=== PATIENT | male | born 1950 | race Caucasian/White ===

== ENCOUNTER 2017-09-10 20:57 | Emergency (ER) | payer MEDICAID ==
[2017-09-10 21:05] VITALS: RESP 18; TEMP 98.6
[2017-09-10 22:03] LABS: Basophils % (A) 1 %; Eosinophils # (A) 0.2 k/uL (0-0.7); Eosinophils % (A) 4 %; HCT 43.2 % (39.0-53.0); HGB 14.2 gm/dL (13.0-17.5); Lymphocytes % (A) 30 %; MCH 30.4 pg (25.0-35.0); MCHC 32.8 g/dL (31.0-37.0); MCV 92.7 fL (80.0-100.0); Mean Platelet Volume 7.9; Monocytes # (A) 0.6 k/uL (0-1.0); Monocytes % (A) 9 %; Neutrophils # (A) 3.5 k/uL (1.3-7.7); Neutrophils % (A) 53 %; Platelet Count 268 k/uL (150-450); RBC 4.66 m/uL (4.30-5.90); RDW 12.1 % (11.5-15.5); WBC 6.6 k/uL (3.8-10.6)
[2017-09-10 22:17] LABS: ALT 26 U/L (21-72); AST 26 U/L (17-59); Alkaline Phosphatase 62 U/L (38-126); Anion Gap 12 mmol/L; Blood Urea Nitrogen 14 mg/dL (9-20); Calcium 9.3 mg/dL (8.4-10.2); Carbon Dioxide 29 mmol/L (22-30); Chloride 105 mmol/L (98-107); Glucose 101 mg/dL (74-99); Magnesium 2.1 mg/dL (1.6-2.3); Potassium 4.3 mmol/L (3.5-5.1); Sodium 146 mmol/L (137-145); Total Bilirubin 1.2 mg/dL (0.2-1.3); Total Protein 6.8 g/dL (6.3-8.2)
--- NOTE | 2017-09-10 22:18 | ED ---
Arrhythmia/Palpitations HPI - General Chief Complaint: Arrhythmia/Palpitations Stated Complaint: Irregular HB Time Seen by Provider: 09/10/17 21:49 Source: patient Mode of arrival: ambulatory Limitations: no limitations - History of Present Illness Initial Comments: 's patient is a 67-year-old man who presents to be evaluated for skipped beats. The patient states that going back about 3 weeks now he has noticed that sometimes when he works out, mainly using the treadmill, he has noticed that when he takes his pulse he will get a few dropped beats. He states that he is not otherwise having symptoms, but as this is continued he felt he should have it checked out. The patient has not been having chest pains, dyspnea, diaphoresis, nausea or vomiting. No exertional dyspnea. No orthopnea. Remainder of review of systems negative. MD Complaint: "skipped beats" Onset/Timin -: week(s) Context: occurred during exertion Associated Symptoms: denies other symptoms - Related Data Home Medications Medication Instructions Recorded Confirmed No Known Home Medications [No 09/10/17 09/10/17 Known Home Medications] Allergies Allergy/AdvReac Type Severity Reaction Status Date / Time erythromycin base AdvReac Rash/Hives Verified 09/10/17 21:59 Review of Systems ROS Statement: Those systems with pertinent positive or pertinent negative responses have been documented in the HPI. ROS Other: All systems not noted in ROS Statement are negative. Constitutional: Denies: fever, chills Respiratory: Denies: cough, dyspnea Cardiovascular: Reports: palpitations. Denies: chest pain, dyspnea on exertion , orthopnea, edema, syncope Gastrointestinal: Denies: abdominal pain, vomiting, diarrhea Genitourinary: Denies: dysuria, hematuria Musculoskeletal: Denies: back pain Skin: Denies: rash Neurological: Denies: headache, weakness, numbness Past Medical History Past Medical History: No Reported History History of Any Multi-Drug Resistant Organisms: None Reported Past Surgical History: Hernia Repair Additional Past Surgical History / Comment(s): back surgery. Past Psychological History: No Psychological Hx Reported Smoking Status: Never smoker Past Alcohol Use History: None Reported Past Drug Use History: None Reported General Exam Limitations: no limitations General appearance: alert, in no apparent distress Head exam: Present: atraumatic, normocephalic Eye exam: Present: normal appearance ENT exam: Present: normal oropharynx, mucous membranes moist Respiratory exam: Present: normal lung sounds bilaterally. Absent: respiratory distress, wheezes, rales, rhonchi, stridor Cardiovascular Exam: Present: regular rate, normal rhythm, normal heart sounds. Absent: systolic murmur, diastolic murmur, rubs, gallop GI/Abdominal exam: Present: soft. Absent: distended, tenderness, guarding Extremities exam: Present: normal inspection, normal capillary refill. Absent: pedal edema, calf tenderness Back exam: Present: normal inspection Neurological exam: Present: alert Skin exam: Present: warm, dry, intact, normal color. Absent: rash Course Vital Signs 09/10/17 09/10/17 21:00 22:38 Temperature 98.6 F Pulse Rate 81 66 Respiratory 18 18 Rate Blood Pressure 163/87 156/82 O2 Sat by Pulse 99 100 Oximetry Medical Decision Making - Lab Data Result diagrams: 09/10/17 21:50 09/10/17 21:50 Lab Results 09/10/17 09/10/17 09/10/17 Range/Units 21:50 21:50 21:50 WBC 6.6 (3.8-10.6) k/uL RBC 4.66 (4.30-5.90) m/uL Hgb 14.2 (13.0-17.5) gm/dL Hct 43.2 (39.0-53.0) % MCV 92.7 (80.0-100.0) fL MCH 30.4 (25.0-35.0) pg MCHC 32.8 (31.0-37.0) g/dL RDW 12.1 (11.5-15.5) % Plt Count 268 (150-450) k/uL Neutrophils % 53 % Lymphocytes % 30 % Monocytes % 9 % Eosinophils % 4 % Basophils % 1 % Neutrophils # 3.5 (1.3-7.7) k/uL Lymphocytes # 2.0 (1.0-4.8) k/uL Monocytes # 0.6 (0-1.0) k/uL Eosinophils # 0.2 (0-0.7) k/uL Basophils # 0.0 (0-0.2) k/uL Sodium 146 H (137-145) mmol/L Potassium 4.3 (3.5-5.1) mmol/L Chloride 105 (98-107) mmol/L Carbon Dioxide 29 (22-30) mmol/L Anion Gap 12 mmol/L BUN 14 (9-20) mg/dL Creatinine 0.90 (0.66-1.25) mg/dL Est GFR (CKD-EPI)AfAm >90 (>60 ml/min/1.73 sqM) Est GFR (CKD-EPI)NonAf 88 (>60 ml/min/1.73 sqM) Glucose 101 H (74-99) mg/dL Calcium 9.3 (8.4-10.2) mg/dL Magnesium 2.1 (1.6-2.3) mg/dL Total Bilirubin 1.2 (0.2-1.3) mg/dL AST 26 (17-59) U/L ALT 26 (21-72) U/L Alkaline Phosphatase 62 (38-126) U/L Troponin I <0.012 (0.000-0.034) ng/mL Total Protein 6.8 (6.3-8.2) g/dL Albumin 4.0 (3.5-5.0) g/dL TSH 2.650 (0.465-4.680) mIU/L Disposition Clinical Impression: Palpitations Disposition: HOME SELF-CARE Condition: Good Instructions: Palpitations (ED) Referrals: None,Stated [Primary Care Provider] - 1-2 days Cruz Thapa MD [STAFF PHYSICIAN] - 1-2 days
--- NOTE | 2017-09-10 22:28 | XR ---
EXAMINATION TYPE: XR chest 2V DATE OF EXAM: 09/10/2017 COMPARISON: NONE HISTORY: Dysrhythmia TECHNIQUE: Frontal and lateral views of the chest are obtained. FINDINGS: Heart and mediastinum are normal. Lungs are clear. Diaphragm is normal. There are chest le ads. Bony thorax appears normal. IMPRESSION: Normal chest
[2017-09-11 00:08] VITALS: BP 124/67; PULSE 58
== END 2017-09-11 00:20 | disposition home or self-care (01) ==
LOC: EC 20:57
DX: R00.2 Palpitations (principal); Z88.1 Allergy status to other antibiotic agents
CPT/HCPCS: 36415; 71046; 80053; 83735; 84443; 84484; 85025; 93005; 99285

== ENCOUNTER → 2017-10-14 | Outpatient (CLI) | payer MEDICAID ==
[2017-10-14 14:35] LABS: HCT 46.5 % (39.0-53.0); MCH 30.1 pg (25.0-35.0); MCHC 32.3 g/dL (31.0-37.0); MCV 93.2 fL (80.0-100.0); Mean Platelet Volume 7.2; Platelet Count 295 k/uL (150-450); RBC 4.99 m/uL (4.30-5.90); RDW 12.2 % (11.5-15.5); WBC 5.9 k/uL (3.8-10.6)
[2017-10-14 14:36] LABS: Appearance,Urine Clear (Clear); Bilirubin,Urine Negative (Negative); Blood,Urine Negative (Negative); Color,Urine Yellow; Glucose,Urine (UA) Negative (Negative); Ketones,Urine 2+ (Negative); Leukocyte Esterase,Urine Negative (Negative); Nitrite,Urine Negative (Negative); PH, Urine 5.5 (5.0-8.0); Protein,Urine Negative (Negative); Urobilinogen,Urine <2.0 mg/dL (<2.0)
[2017-10-14 14:53] LABS: ALT 31 U/L (21-72); AST 26 U/L (17-59); Albumin 4.3 g/dL (3.5-5.0); Alkaline Phosphatase 60 U/L (38-126); Anion Gap 13 mmol/L; Blood Urea Nitrogen 14 mg/dL (9-20); Calcium 9.6 mg/dL (8.4-10.2); Carbon Dioxide 27 mmol/L (22-30); Chloride 104 mmol/L (98-107); Cholesterol 220 mg/dL (<200); Glucose 96 mg/dL (74-99); HDL Cholesterol 62 mg/dL (40-60); LDL Cholesterol,Calculated 146 mg/dL (0-99); Potassium 4.4 mmol/L (3.5-5.1); Sodium 144 mmol/L (137-145); Total Bilirubin 3.5 mg/dL (0.2-1.3); Triglycerides 59 mg/dL (<150)
[2017-10-14 15:07] LABS: T4, Free (Free Thyroxine) 1.04 ng/dL (0.78-2.19)
[2017-10-14 15:21] LABS: PSA Annual Screen 0.89 ng/mL (0.00-4.00)
== END ==
LOC: LABWHC1 14:10
PROVIDERS: ATTEND Family Medicine
DX: R03.0 Elevated blood-pressure reading, without diagnosis of hypertension (principal)
CPT/HCPCS: 84439; 80061; 80053; 84443; 85027; 81003; 82306; 36415; G0103

== ENCOUNTER → 2017-10-19 | Outpatient (CLI) | payer MEDICAID ==
[2017-10-19 09:17] LABS: Bilirubin, Delta 0.4 mg/dL (0.0-0.2); Bilirubin,Unconjugated 1.1 mg/dL (0.0-1.1); Total Bilirubin 1.5 mg/dL (0.2-1.3)
== END | disposition home or self-care (01) ==
LOC: LABWHC1 08:49
PROVIDERS: ATTEND Family Medicine
DX: R89.9 Unspecified abnormal finding in specimens from other organs, systems and tissues (principal)
CPT/HCPCS: 36415; 82248

== ENCOUNTER 2017-11-27 09:57 | Day surgery (SDC) | payer MEDICAID ==
[2017-11-24 15:58] VITALS: BMI 26.0
[~2017-11-27 09:57] MED LIST: LACTATED RINGERS 1,000 ML IV SCH
[2017-11-27 10:25] VITALS: RESP 16; TEMP 98.6
[2017-11-27] MEDS ORDERED: LIDOCAINE 1% 20 ML VIAL (10MG/ML) FOR IV START INTRADERMA ONE (11:33)
[2017-11-27] MEDS ORDERED: LIDOCAINE 1% INJ 10MG/ML (20 ML MDV) ONE (13:50)
[2017-11-27] MEDS ORDERED: PROPOFOL 10 MG/ML 20 ML VIAL IV ONE (13:50)
--- NOTE | 2017-11-27 14:18 | P.PCN ---
Date of Procedure: 11/27/17 Procedure(s) Performed: PREOPERATIVE DIAGNOSIS: Colon cancer screening, history of polyps POSTOPERATIVE DIAGNOSIS: Small rectal polyp PROCEDURE: Colonoscopy with cold biopsy ANESTHESIA: MAC SURGEON: Tylor Ball M.D. SPECIMENS: Rectal polyp ENDOSCOPIC PROCEDURE: The patient was placed on the endoscopy table in the left decubitus position. The Olympus colonoscope was inserted into the anus and passed under direct visualization to the base of the cecum. The appendiceal orifice was visualized. From that point the scope was slowly withdrawn inspecting all surfaces carefully. There were no neoplastic inflammatory or polypoid lesions throughout the cecum, ascending, transverse, descending and sigmoid colon. In the rectum proximally there is noted to be a small polyp. This was removed using the cold biopsy forceps. The remainder the rectum appeared normal. There was moderate sigmoid diverticulosis present as well. Digital rectal examination was normal. The patient was taken to the recovery room in stable condition per anesthesia guidelines. RECOMMENDATIONS: Await biopsy results. Anticipate follow-up colonoscopy 5 years.
[2017-11-27 14:32] VITALS: BP 137/80; PULSE 65
== END 2017-11-27 14:51 | disposition home or self-care (01) ==
LOC: ORWHC2ENDO 09:57
PROVIDERS: ATTEND Surgery
DX: Z12.11 Encounter for screening for malignant neoplasm of colon (principal); K62.1 Rectal polyp; K57.30 Diverticulosis of large intestine without perforation or abscess without bleeding; Z88.1 Allergy status to other antibiotic agents
CPT/HCPCS: 88305; 45380; J2001; J2704

== ENCOUNTER → 2020-05-31 | Outpatient (CLI) | payer MEDICAID ==
--- NOTE | 2020-05-31 15:51 | XR ---
EXAMINATION TYPE: XR KUB DATE OF EXAM: 05/31/2020 COMPARISON: NONE HISTORY: Hematuria TECHNIQUE: One view abdominal series FINDINGS: The osseous structures are intact. The bowel gas pattern is nonspecific. Extensive retained fecal de bris throughout the colon. There is evidence of previous hernia repair surgery. Numerous calcificatio ns are seen in the pelvis. Question of 5 mm right renal calculus. IMPRESSION: 1. Nonspecific abdomen. Question 5 mm right renal calculus. Calcifications in the pelvis are nonspec ific could be within the ureter. Recommend noncontrast CT abdomen pelvis to assess for renal calculus .
[2020-05-31 16:23] LABS: Basophils % (A) 0 %; Eosinophils # (A) 0.1 k/uL (0-0.7); Eosinophils % (A) 1 %; HCT 44.9 % (39.0-53.0); HGB 14.8 gm/dL (13.0-17.5); Lymphocytes # (A) 1.9 k/uL (1.0-4.8); Lymphocytes % (A) 22 %; MCH 31.1 pg (25.0-35.0); MCHC 32.9 g/dL (31.0-37.0); MCV 94.5 fL (80.0-100.0); Mean Platelet Volume 7.3; Monocytes # (A) 0.8 k/uL (0-1.0); Monocytes % (A) 9 %; Neutrophils # (A) 5.7 k/uL (1.3-7.7); Neutrophils % (A) 65 %; Platelet Count 466 k/uL (150-450); RBC 4.75 m/uL (4.30-5.90); RDW 12.4 % (11.5-15.5); WBC 8.8 k/uL (3.8-10.6)
[2020-06-01 02:39] LABS: African American GFR (CKD) 88.6 (60.0-200.0); Albumin 4.3 g/dL (3.80-4.90); Albumin/Globulin Ratio 1.79 (1.60-3.17); Anion Gap 10.6 mmol/L (4.00-12.00); Calcium 9.5 mg/dL (8.7-10.3); Carbon Dioxide 26.4 mmol/L (21.6-31.8); Globulin 2.4 g/dL (1.6-3.3); Non-African American GFR(CKD) 76.5 (60.0-200.0); Potassium 4.5 mmol/L (3.5-5.5); Total Bilirubin 2.2 mg/dL (0.2-1.2); Total Protein 6.7 g/dL (6.2-8.2)
[2020-06-01 02:47] LABS: Prostate Specific Antigen 1.3 ng/mL (0.0-4.5)
== END | disposition home or self-care (01) ==
LOC: LABWHC1 15:27
PROVIDERS: ATTEND Family Medicine
DX: R93.41 Abnormal radiologic findings on diagnostic imaging of renal pelvis, ureter, or bladder (principal); R31.9 Hematuria, unspecified; R94.5 Abnormal results of liver function studies; E80.4 Gilbert syndrome
CPT/HCPCS: 36415; 74018; 80053; 84153; 85025; 87086

== ENCOUNTER → 2020-06-12 | Outpatient (CLI) | payer MEDICAID ==
--- NOTE | 2020-06-12 14:57 | CT ---
EXAMINATION TYPE: CT abdomen pelvis wo con DATE OF EXAM: 06/12/2020 COMPARISON: None HISTORY: Right sided flank pain and hematuria. CT DLP: 399.3 mGycm Examination of the solid and hollow viscera is limited given the lack of contrast. FINDINGS: LUNG BASES: No evidence for nodule. No evidence for infiltrate. Mild right basilar atelectasis. LIVER/GB: The gallbladder is unremarkable. No space-occupying hepatic lesion. PANCREAS: No pancreatic mass identified. No inflammatory process seen. SPLEEN: No evidence for splenomegaly. No intrasplenic lesions seen. ADRENALS: No adrenal nodules identified. No evidence for thickening. KIDNEYS: No evidence for renal mass. No nephrolithiasis. No hydronephrosis. BOWEL: Appendix has a normal appearance. No evidence of bowel obstruction. No inflammatory process. Lymph nodes: No evidence for adenopathy greater than 1 cm. Abdominal aorta: Atheromatous changes seen. No evidence for aneurysm. Genital organs: Prostate calcifications identified. Other: No significant abnormality. IMPRESSION: 1. No evidence for hydronephrosis or nephrolithiasis.
== END | disposition home or self-care (01) ==
LOC: RADCTMAIN 13:52
PROVIDERS: ATTEND Family Medicine
DX: N20.2 Calculus of kidney with calculus of ureter (principal)
CPT/HCPCS: 74176

== ENCOUNTER → 2021-07-15 | Outpatient (CLI) | payer MEDICAID ==
--- NOTE | 2021-07-15 12:52 | XR ---
EXAMINATION TYPE: XR foot complete LT DATE OF EXAM: 07/15/2021 COMPARISON: NONE HISTORY: Pain TECHNIQUE: Three views are submitted. FINDINGS: The osseous structures are intact. There is no acute fracture or dislocation. Hypertrophic arthrop athy of the first MTP with suggestion of soft tissue edema adjacent. Vascular calcifications noted. IMPRESSION: 1. First MTP joint arthropathy.
== END | disposition home or self-care (01) ==
LOC: RADXRMAIN 12:33
PROVIDERS: ATTEND Family Medicine
DX: M12.872 Other specific arthropathies, not elsewhere classified, left ankle and foot (principal)

== ENCOUNTER → 2022-11-27 | Outpatient (CLI) | payer MEDICAID ==
[2022-11-27 22:44] LABS: HCT 45.9 % (39.6-50.0); HGB 14.5 d/dL (12.0-15.0); MCH 30.5 pg (27.0-32.0); MCHC 31.6 d/dL (32.0-37.0); MCV 96.6 FL (80.0-97.0); Mean Platelet Volume 10.7 FL (9.5-12.2); NRBC Per 100 WBC 0 X 10*3/uL (0.00-0.01); Platelet Count 309 X 10*3/uL (140-440); RBC 4.75 X 10*6/uL (4.40-5.60); WBC 7.55 X 10*3/uL (4.50-10.00)
[2022-11-28 02:42] LABS: Appearance,Urine Clear (Clear); Bilirubin,Urine Negative (Negative); Blood,Urine Negative (Negative); Color,Urine Yellow (Yellow); Ketones,Urine Trace (Negative); Nitrite,Urine Negative (Negative); PH, Urine 6.5; Specific Gravity,Urine 1.013 (1.001-1.030)
[2022-11-28 02:56] LABS: ALT 24 U/L (10-49); AST 24 U/L (14-35); Albumin 4.5 d/dL (3.8-4.9); Albumin/Globulin Ratio 1.88 Ratio (1.60-3.17); Alkaline Phosphatase 64 U/L (41-126); Bilirubin, Conjugated 0.48 mg/dL (0.20-0.40); Bilirubin,Unconjugated 1.72 mg/dL (0.20-1.00); Chol/HDL Ratio 3.84 Ratio; Globulin 2.4 d/dL (1.6-3.3); LDL Cholesterol,Calculated 149.3 mg/dL (0.0-131.0); Total Bilirubin 2.2 mg/dL (0.3-1.2); Total Protein 6.9 d/dL (6.2-8.2); VLDL Calculation 16.36 mg/dL (5.00-40.00)
== END | disposition home or self-care (01) ==
LOC: LABWHC1 12:36
PROVIDERS: ATTEND Family Medicine
DX: N40.1 Benign prostatic hyperplasia with lower urinary tract symptoms (principal); E80.6 Other disorders of bilirubin metabolism
CPT/HCPCS: 36415; 80061; 80076; 81003; 83036; 84153; 85027

== ENCOUNTER 2023-02-17 10:28 | Day surgery (SDC) | payer MEDICAID ==
[2023-02-17] MEDS ORDERED: LACTATED RINGERS 1,000 ML IV ONE ×2 (10:45)
[2023-02-17 10:50] VITALS: RESP 16; TEMP 97.6
[2023-02-17] MEDS ORDERED: PROPOFOL 10 MG/ML 20 ML VIAL IV ONE (11:36)
--- NOTE | 2023-02-17 11:40 | P.GSHP ---
History of Present Illness H&P Date: 02/17/23 Chief Complaint: Colon cancer screening with history of polyps 73-year-old male here for colonoscopy. Last colonoscopy 5 years ago. Patient with history of colon polyps. No bowel complaints. Past Medical History Past Medical History: No Reported History Additional Past Medical History / Comment(s): ELEVATED LIVER ENZYMES -PAST HISTORY kidney stones after covid, History of Any Multi-Drug Resistant Organisms: None Reported Past Surgical History: Hernia Repair, Tonsillectomy Additional Past Surgical History / Comment(s): back surgery.COLONOSCOPY Past Anesthesia/Blood Transfusion Reactions: Motion Sickness, Postoperative Nausea & Vomiting (PONV) Smoking Status: Former smoker - Past Family History Father Family Medical History: Cancer Additional Family Medical History / Comment(s): LUNG CANCER Medications and Allergies Home Medications Medication Instructions Recorded Confirmed Type No Known Home Medications 09/10/17 02/17/23 History Allergies Allergy/AdvReac Type Severity Reaction Status Date / Time erythromycin base AdvReac Rash/Hives Verified 02/17/23 10:52 Surgical - Exam Vital Signs Temp Pulse Resp BP Pulse Ox 97.6 F 72 16 164/91 97 02/17/23 10:45 02/17/23 10:45 02/17/23 10:45 02/17/23 10:45 02/17/23 10:45 Physical exam: General: Well-developed, well-nourished HEENT: Normocephalic, sclerae nonicteric Abdomen: Nontender, nondistended Extremities: No edema Neuro: Alert and oriented Assessment and Plan (1) Colon cancer screening Narrative/Plan: Will proceed with colonoscopy at this time. Current Visit: Yes Status: Acute Code(s): Z12.11 - ENCOUNTER FOR SCREENING FOR MALIGNANT NEOPLASM OF COLON SNOMED Code(s): 800555429
--- NOTE | 2023-02-17 11:52 | P.PCN ---
Date of Procedure: 02/17/23 Procedure(s) Performed: PREOPERATIVE DIAGNOSIS: Colon cancer screening with history of polyps POSTOPERATIVE DIAGNOSIS: Diverticulosis PROCEDURE: Colonoscopy ANESTHESIA: MAC SURGEON: Tylor Ball M.D. SPECIMENS: None ENDOSCOPIC PROCEDURE: The patient was placed on the endoscopy table in the left decubitus position. The Olympus colonoscope was inserted into the anus and passed under direct visualization to the base of the cecum. The appendiceal orifice was visualized. From that point the scope was slowly withdrawn inspecting all surfaces carefully. There were no neoplastic inflammatory or polypoid lesions throughout the cecum, ascending, transverse, descending, sigmoid and rectum. There was fairly extensive left-sided diverticulosis noted. Digital rectal examination was normal. The patient was taken to the recovery room in stable condition per anesthesia guidelines. RECOMMENDATIONS: Resume diet. Repeat colonoscopy 5-7 years
[2023-02-17] MEDS ORDERED: LACTATED RINGERS 1,000 ML IV SCH (12:00)
[2023-02-17] MEDS ORDERED: LIDOCAINE 1% (10MG/ML) FOR IV START INTRADERMA PRN (12:00)
[2023-02-17 12:09] VITALS: BP 123/76; PULSE 52
== END 2023-02-17 12:30 ==
LOC: ORWHC2ENDO 10:28
PROVIDERS: ATTEND Surgery
DX: Z12.11 Encounter for screening for malignant neoplasm of colon (principal); K57.30 Diverticulosis of large intestine without perforation or abscess without bleeding; Z86.010 Personal history of colon polyps; Z87.891 Personal history of nicotine dependence; Z87.19 Personal history of other diseases of the digestive system; Z80.1 Family history of malignant neoplasm of trachea, bronchus and lung; Z87.442 Personal history of urinary calculi; Z88.1 Allergy status to other antibiotic agents; Z79.899 Other long term (current) drug therapy; Z90.49 Acquired absence of other specified parts of digestive tract
CPT/HCPCS: 45378; J2704